=== PATIENT | male | born 1960 | race Native Hawaiian/Other Pacific Islander ===

== ENCOUNTER 2017-04-06 07:50 | Outpatient (CLI) | payer OTHER | END 2017-04-06 19:34 | disposition home or self-care (01) | LOC: CT 07:50 | DX: R22.1 Localized swelling, mass and lump, neck (principal) | CPT/HCPCS: 36415; 82565; 84520; Q9963 ==

== ENCOUNTER 2017-12-18 09:15 | Outpatient (CLI) | payer OTHER ==
[2017-12-18 09:28] LABS: PLATELET COUNT 218 K/uL (142-355)
== END 2017-12-18 21:12 | disposition home or self-care (01) ==
LOC: LABW 09:15
PROVIDERS: Physician Assistant
DX: E11.9 Type 2 diabetes mellitus without complications (principal); I10 Essential (primary) hypertension; R13.10 Dysphagia, unspecified; Z12.5 Encounter for screening for malignant neoplasm of prostate
CPT/HCPCS: 36415; 80053; 80061; 83036; 84153; 84439; 84443; 85027

== ENCOUNTER 2019-12-05 09:47 | Outpatient (CLI) | payer BC ==
[2019-12-05 10:21] LABS: POTASSIUM 4.2 mmol/L (3.6-5.2)
== END 2019-12-05 22:28 | disposition home or self-care (01) ==
LOC: LABW 09:47
PROVIDERS: Nurse Practitioner
DX: E11.9 Type 2 diabetes mellitus without complications (principal); Z12.5 Encounter for screening for malignant neoplasm of prostate
CPT/HCPCS: 36415; 80053; 80061; 82043; 82570; 83036; 84154

== ENCOUNTER 2020-05-18 17:12 | Outpatient (CLI) | payer BC ==
[2020-05-18 17:43] LABS: PLATELET COUNT 239 K/uL (142-355)
[2020-05-18 18:14] LABS: POTASSIUM 3.9 mmol/L (3.6-5.2)
== END 2020-05-18 19:51 | disposition home or self-care (01) ==
LOC: LABW 17:12
PROVIDERS: ATTEND Physician Assistant
DX: E11.9 Type 2 diabetes mellitus without complications (principal); E78.1 Pure hyperglyceridemia; I10 Essential (primary) hypertension; K21.9 Gastro-esophageal reflux disease without esophagitis
CPT/HCPCS: 36415; 80053; 80061; 82043; 82570; 83036; 84443; 85027

== ENCOUNTER 2020-06-22 17:06 | Outpatient (CLI) | payer BC ==
[2020-06-22 17:19] LABS: PLATELET COUNT 233 K/uL (142-355)
== END 2020-06-22 21:58 | disposition home or self-care (01) ==
LOC: LABW 17:06
PROVIDERS: ATTEND Physician Assistant
DX: D72.829 Elevated white blood cell count, unspecified (principal)
CPT/HCPCS: 36415; 85027

== ENCOUNTER 2021-03-04 09:30 | Outpatient (CLI) | payer OTHER ==
[2021-03-04 10:39] LABS: PLATELET COUNT 253 K/uL (142-355)
[2021-03-04 12:42] LABS: POTASSIUM 4.1 mmol/L (3.6-5.2)
== END 2021-03-04 20:23 | disposition home or self-care (01) ==
LOC: LABW 09:30
PROVIDERS: ATTEND Internal Medicine
DX: M54.50 Low back pain, unspecified (principal); E11.9 Type 2 diabetes mellitus without complications
CPT/HCPCS: 80053; 80061; 81000; 82043; 83036; 84439; 84443; 85027

== ENCOUNTER 2022-04-07 07:48 | Outpatient (CLI) | payer OTHER | END 2022-04-07 19:47 | disposition home or self-care (01) | LOC: MRI 07:48 | PROVIDERS: ATTEND Pain Medicine Interventional Pain Medicine | DX: M54.17 Radiculopathy, lumbosacral region (principal) ==